=== PATIENT | female | born 1985 | race Caucasian/White ===

== ENCOUNTER 2019-01-16 11:09 | Outpatient (CLI) | payer MEDICAID | END 2019-01-16 15:00 | disposition home or self-care (01) | LOC: OBT 11:09 → L-D 11:10 → OBT 15:00 | DX: O26.853 Spotting complicating pregnancy, third trimester (principal); O24.419 Gestational diabetes mellitus in pregnancy, unspecified control; Z3A.35 35 weeks gestation of pregnancy | CPT/HCPCS: 76818 ==

== ENCOUNTER 2019-01-23 15:14 | Inpatient (IN) | payer MEDICAID ==
[2019-01-23 19:51] LABS: ADD MAN DIFF? NO
[2019-01-23 19:53] LABS: BASOPHILS % 0.4 % (0.0-2.0); EOSINOPHILS # 0.1 10^3/ul (0.0-0.5); EOSINOPHILS % 1.4 % (0.0-7.0); HEMATOCRIT 36.8 % (37.0-47.0); HEMOGLOBIN 11.9 g/dl (12.0-16.0); LYMPHOCYTES # 2.2 10^3/ul (0.8-2.9); LYMPHOCYTES % 26.2 % (15.0-51.0); MEAN CORPUSCULAR HEMOGLOBIN 28.1 pg (29.0-33.0); MEAN CORPUSCULAR HGB CONC 32.3 g/dl (32.0-37.0); MEAN CORPUSCULAR VOLUME 86.8 fl (82.0-101.0); MEAN PLATELET VOLUME 11.4 fl (7.4-10.4); MONOCYTE # 0.9 10^3/ul (0.3-0.9); MONOCYTES % 10.2 % (0.0-11.0); NEUTROPHIL # 5.2 10^3/ul (1.6-7.5); PLATELET COUNT 178 10^3/UL (140-415); RED BLOOD COUNT 4.24 10^6/ul (4.20-5.40); RED CELL DISTRIBUTION WIDTH 13.5 % (11.5-14.5)
[2019-01-23 19:53] LABS: WHITE BLOOD COUNT 8.4 10^3/ul (4.8-10.8)
== END 2019-01-24 17:24 | disposition home or self-care (01) | DRG 833 ==
LOC: OBT 15:14 → L-D 15:15 → OBT 18:30 → L-D 18:09
PROVIDERS: Obstetrics & Gynecology
DX: O26.853 Spotting complicating pregnancy, third trimester (principal); Z3A.36 36 weeks gestation of pregnancy
CPT/HCPCS: 76818; 85014; 85018; 85025

== ENCOUNTER 2019-02-12 08:19 | Inpatient (IN) | payer MEDICAID ==
[2019-02-12] MEDS ORDERED: IBUPROFEN 600 MG TAB PO (13:30)
[2019-02-12] MEDS ORDERED: MISOPROSTOL 200 MCG TAB PR (13:30)
[2019-02-12] MEDS ORDERED: OXYTOCIN 30 UNITS/LR 500 ML IV ×3 (13:30→16:30)
[2019-02-12] MEDS ORDERED: LIDOCAINE 1% (MPF) 30 ML INJ INJ (13:30)
[2019-02-12] MEDS ORDERED: CARBOPROST 250 MCG INJ IM (13:30)
[2019-02-12] MEDS ORDERED: METHYLERGONOVINE 0.2 MG INJ IM (13:30)
[2019-02-12] MEDS: LACTATED RINGER'S 1,000 ML IV ×2 (14:06→21:05)
[2019-02-12 14:52] LABS: ADD MAN DIFF? NO
[2019-02-12 14:58] LABS: BASOPHILS % 0.3 % (0.0-2.0); EOSINOPHILS # 0.1 10^3/ul (0.0-0.5); EOSINOPHILS % 1.3 % (0.0-7.0); HEMATOCRIT 37.7 % (37.0-47.0); LYMPHOCYTES # 2.5 10^3/ul (0.8-2.9); LYMPHOCYTES % 26.3 % (15.0-51.0); MEAN CORPUSCULAR HEMOGLOBIN 28.3 pg (29.0-33.0); MEAN CORPUSCULAR HGB CONC 31.8 g/dl (32.0-37.0); MEAN CORPUSCULAR VOLUME 88.9 fl (82.0-101.0); MEAN PLATELET VOLUME 12.2 fl (7.4-10.4); MONOCYTE # 0.9 10^3/ul (0.3-0.9); MONOCYTES % 9.2 % (0.0-11.0); NEUTROPHIL # 5.8 10^3/ul (1.6-7.5); NEUTROPHILS % 61.9 % (39.0-77.0); PLATELET COUNT 173 10^3/UL (140-415); RED BLOOD COUNT 4.24 10^6/ul (4.20-5.40); RED CELL DISTRIBUTION WIDTH 15.2 % (11.5-14.5)
[2019-02-12 14:58] LABS: WHITE BLOOD COUNT 9.4 10^3/ul (4.8-10.8)
[2019-02-12 15:22] LABS: INR 0.98; PROTIME 13.1 Sec (11.9-14.9)
[2019-02-12 15:23] LABS: PARTIAL THROMBOPLASTIN TIME 31.5 Sec (23.0-35.0)
[2019-02-12] MEDS ORDERED: LACTATED RINGER'S 1,000 ML IV (16:05)
[2019-02-12] MEDS: MISOPROSTOL 50 MCG CAPSULE PO ×2 (16:16→21:05)
[2019-02-12 17:03] LABS: HEPATITIS B SURFACE ANTIGEN NEGATIVE (NEGATIVE)
[2019-02-12 19:30] LABS: RAPID PLASMA REAGIN NONREACTIVE (NR)
[2019-02-13] MEDS: MISOPROSTOL 50 MCG CAPSULE PO ×4 (01:04→14:04)
[2019-02-13] MEDS: LACTATED RINGER'S 1,000 ML IV ×2 (05:23→13:27)
[2019-02-13] MEDS: BUTORPHANOL 2 MG INJ IV (16:50)
[2019-02-13] MEDS: OXYTOCIN 30 UNITS/LR 500 ML IV ×2 (18:53→19:48)
[2019-02-13] MEDS ORDERED: MISOPROSTOL 200 MCG TAB PR (19:00)
[2019-02-13] MEDS ORDERED: CARBOPROST 250 MCG INJ IM (19:00)
[2019-02-13] MEDS ORDERED: NACL 0.9% 3 ML SYG IV (19:00)
[2019-02-13] MEDS ORDERED: OXYCODONE/ASPIRIN (4.88/325) TAB PO (19:00)
[2019-02-13] MEDS ORDERED: WITCH HAZEL/GLYCERIN PAD PR (19:00)
[2019-02-13] MEDS ORDERED: BENZOCAINE 20% 56 ML SPRAY TOP (19:00)
[2019-02-13] MEDS ORDERED: METHYLERGONOVINE 0.2 MG INJ IM (19:00)
[2019-02-13] MEDS ORDERED: OXYTOCIN 30 UNITS/LR 500 ML IV (19:00)
[2019-02-13] MEDS ORDERED: ACETAMINOPHEN 325 MG TAB PO (19:00)
[2019-02-14] MEDS: IBUPROFEN 600 MG TAB PO ×5 (01:11→23:47)
[2019-02-14] MEDS: SENNA/DOCUSATE NA (8.6MG/50MG) TAB PO ×3 (01:11→21:32)
[2019-02-14] MEDS: OXYTOCIN 30 UNITS/LR 500 ML IV (01:28)
[2019-02-14] MEDS: MISOPROSTOL 50 MCG CAPSULE PO (08:05)
[2019-02-14] MEDS: LACTATED RINGER'S 1,000 ML IV (08:05)
[2019-02-14 08:09] LABS: ADD MAN DIFF? NO
[2019-02-14 08:22] LABS: BASOPHILS % 0.2 % (0.0-2.0); EOSINOPHILS % 0.2 % (0.0-7.0); HEMOGLOBIN 10.7 g/dl (12.0-16.0); LYMPHOCYTES # 2.3 10^3/ul (0.8-2.9); MEAN CORPUSCULAR HGB CONC 32.4 g/dl (32.0-37.0); MEAN CORPUSCULAR VOLUME 86.4 fl (82.0-101.0); MEAN PLATELET VOLUME 11.7 fl (7.4-10.4); MONOCYTE # 1.2 10^3/ul (0.3-0.9); MONOCYTES % 9.5 % (0.0-11.0); NEUTROPHIL # 9.2 10^3/ul (1.6-7.5); NEUTROPHILS % 71.6 % (39.0-77.0); PLATELET COUNT 124 10^3/UL (140-415); RED BLOOD COUNT 3.82 10^6/ul (4.20-5.40); RED CELL DISTRIBUTION WIDTH 15.2 % (11.5-14.5)
[2019-02-14 08:22] LABS: WHITE BLOOD COUNT 12.8 10^3/ul (4.8-10.8)
[2019-02-15] MEDS: IBUPROFEN 600 MG TAB PO ×2 (05:37→11:38)
[2019-02-15 06:43] LABS: ADD MAN DIFF? NO
[2019-02-15 06:49] LABS: BASOPHILS % 0.4 % (0.0-2.0); EOSINOPHILS # 0.1 10^3/ul (0.0-0.5); EOSINOPHILS % 1.6 % (0.0-7.0); HEMATOCRIT 31.2 % (37.0-47.0); LYMPHOCYTES # 2.5 10^3/ul (0.8-2.9); LYMPHOCYTES % 29.4 % (15.0-51.0); MEAN CORPUSCULAR HEMOGLOBIN 28.4 pg (29.0-33.0); MEAN CORPUSCULAR HGB CONC 32.1 g/dl (32.0-37.0); MEAN CORPUSCULAR VOLUME 88.6 fl (82.0-101.0); MEAN PLATELET VOLUME 11.3 fl (7.4-10.4); MONOCYTE # 0.8 10^3/ul (0.3-0.9); NEUTROPHIL # 4.8 10^3/ul (1.6-7.5); NEUTROPHILS % 57.6 % (39.0-77.0); PLATELET COUNT 129 10^3/UL (140-415); RED BLOOD COUNT 3.52 10^6/ul (4.20-5.40); RED CELL DISTRIBUTION WIDTH 15.6 % (11.5-14.5)
[2019-02-15 06:49] LABS: WHITE BLOOD COUNT 8.4 10^3/ul (4.8-10.8)
[2019-02-15] MEDS: LANOLIN HPA 1 PKT TOP (09:07)
[2019-02-15] MEDS: SENNA/DOCUSATE NA (8.6MG/50MG) TAB PO (09:07)
== END 2019-02-15 14:22 | disposition home or self-care (01) | DRG 807 ==
LOC: L-D 08:19 → PP1 02-13 21:05 → L-D 10:58
PROVIDERS: Obstetrics & Gynecology
PROC: 10E0XZZ Delivery of Products of Conception, External Approach (ICD-10-PCS; principal; 2019-02-13)
DX: O80 Encounter for full-term uncomplicated delivery (principal); Z37.0 Single live birth; Z3A.39 39 weeks gestation of pregnancy
CPT/HCPCS: 76815; 85025; 85610; 85730; 86592; 86850; 86900; 86901; 87340; 99464